=== PATIENT | male | born 1995 | race African-American/Black ===

== ENCOUNTER 2017-05-06 08:51 | Emergency (ER) | payer OTHER, MEDICAID ==
[~2017-05-06] VITALS: Ht 172.7 cm; Wt 73.0 kg
[2017-05-06 09:29] VITALS: BP 110/62
== END 2017-05-06 11:11 | disposition home or self-care (01) ==
LOC: ER 08:51
DX: R51 Headache (principal); Y08.89XA Assault by other specified means, initial encounter; Y93.89 Activity, other specified; Y92.89 Other specified places as the place of occurrence of the external cause; Y99.8 Other external cause status
CPT/HCPCS: 99283; Z7610

== ENCOUNTER 2024-05-12 22:56 | Emergency (ER) | payer MEDICAID, OTHER ==
[~2024-05-12] VITALS: Ht 170.2 cm; Wt 71.0 kg
[2024-05-12 23:03] VITALS: BP 112/68; PULSE 78; RESP 18; TEMP 98.4; O2SAT 98
[2024-05-12] MEDS: IBUPROFEN 400MG TABLET PO ONE (23:45)
[2024-05-13] MEDS: TETANUS, DIPHTHERIA, PERTUSSIS VAC/PF 0.5ML (>10YR OLD) IM ONE (00:30)
== END 2024-05-13 01:38 ==
LOC: ER 22:56
DX: S61.412A Laceration without foreign body of left hand, initial encounter (principal); S51.812A Laceration without foreign body of left forearm, initial encounter; X58.XXXA Exposure to other specified factors, initial encounter; Y93.89 Activity, other specified; Y92.89 Other specified places as the place of occurrence of the external cause; Y99.8 Other external cause status
CPT/HCPCS: 73130; 73660; 99284